=== PATIENT | female | born 1945 | race Caucasian/White ===

== ENCOUNTER 2016-10-14 15:51 | Inpatient (IN) | payer OTHER ==
[~2016-10-14] VITALS: Ht 154.9 cm; Wt 101.8 kg
[~2016-10-14 15:51] MED LIST: ASPIR 8181 M1 PO; ASPIRIN E.C.81 M1 PO; BENICAR HCT 201 EACH PO; CALCIUM MAGNES1 EAC1 PO; CRANBERRY200 MG PO; DIFLUCAN150 MG PO; FLEXERIL10 MG PO; METFORMIN HCL500 MG PO; NITROFURANTOIN50 MG PO; PERCOCET 5/31 TABLET PO; PERCOCET 7.51 TABLET PO; PYRIDIUM100 MG PO; Tums PO; VITAMIN D400 UNIT PO
[2016-10-14 16:59] VITALS: BP 138/69
[2016-10-14 19:38] VITALS: BP 122/63
[2016-10-15 00:25] LABS: ADD MIUA? YES; BILIRUBIN NEGATIVE; BLOOD MODERATE; COLOR YELLOW ((YELLOW)); GLUCOSE (STRIP) NEGATIVE; KETONES 5; LEUKOCYTES LARGE; NITRITE NEGATIVE; PROTEIN (STRIP) 100; UROBILINOGEN 0.2 MG/DL (0.2-1.0)
[2016-10-15 00:41] LABS: BACTERIA RARE /HPF; BUDDING YEAST 1+; EPITHELIAL CELLS RARE /HPF; HYALINE CASTS 0-5 /LPF; MUCUS TRACE /LPF; UCUL ADDED? YES; WHITE BLOOD CELLS TNTC /HPF (0-5)
[2016-10-15 00:45] VITALS: BP 142/69
[2016-10-15 03:35] VITALS: BP 124/59
[2016-10-15 07:28] LABS: POINT-OF-CARE METER ID UU14174225
[2016-10-15 07:37] LABS: HEMATOCRIT 29.3 % (36.0-46.0); MCH 26.1 PG (29.0-34.0); MCHC 31.4 G/DL (30.0-36.0); MEAN PLAT.VOLUME 11.1 uM^3 (9.5-12.4); PLATELET COUNT 272 K/uL (156-360); RBC DIS.WIDTH-CV 16.9 % (11.8-14.6); RED BLOOD COUNT 3.53 M/uL (3.80-5.20)
[2016-10-15 07:41] VITALS: BP 152/65
[2016-10-15 10:17] LABS: ANION GAP 11 MEQ/L (2-14); CHLORIDE 102 MEQ/L (99-109); GFR ESTIMATE (CALCULATED) > 59 mL/min/; GLUCOSE 123 mg/dL (70-99); POTASSIUM 3.7 MEQ/L (3.7-5.4); SAMPLE HEMOLYSIS CHECK 0; SAMPLE ICTERIC CHECK 0; SAMPLE LIPEMIA CHECK 0; SODIUM 137 MEQ/L (136-147); UREA NITROGEN (BUN) 31 mg/dL (9-23)
[2016-10-15 11:27] LABS: POINT-OF-CARE METER ID UU14174225
[2016-10-15 11:41] VITALS: BP 130/54
[2016-10-15 15:17] VITALS: BP 141/93
[2016-10-15 20:00] VITALS: BP 143/74
[2016-10-16] VITALS (7 sets, daily range): BP systolic 107–160; BP diastolic 61–90
[2016-10-16 11:04] LABS: EOSINOPHIL (%) 0.3 % (0-5); EOSINOPHIL COUNT 0.1 K/uL (0-0.3); HEMATOCRIT 26.4 % (36.0-46.0); IMMATURE GRANULOCYTE COUNT 0.2 K/uL; INSTRUMENT ABS NEUTROPHIL CT 18.9 K/uL; LYMPHOCYTE COUNT 0.9 K/uL (1.0-2.8); MCH 26.1 PG (29.0-34.0); MCHC 31.4 G/DL (30.0-36.0); MEAN PLAT.VOLUME 10.6 uM^3 (9.5-12.4); MONOCYTE (%) 6.7 % (3-12); MONOCYTE COUNT 1.4 K/uL (0-0.8); NEUTROPHIL (%) 87.6 % (45-76); NEUTROPHIL COUNT 18.9 K/uL (1.8-6.4); PLATELET COUNT 270 K/uL (156-360); RBC DIS.WIDTH-CV 16.9 % (11.8-14.6); RBC DIS.WIDTH-SD 50.8 % (39-53); RED BLOOD COUNT 3.18 M/uL (3.80-5.20); WHITE BLOOD COUNT 21.6 K/uL (4.1-10.2)
[2016-10-16 21:30] LABS: POINT-OF-CARE METER ID UU14174225
[2016-10-17 04:00] VITALS: BP 137/62
[2016-10-17 07:24] LABS: HEMATOCRIT 24.9 % (36.0-46.0); MCHC 31.7 G/DL (30.0-36.0); MCV 81.9 FL (83-99); MEAN PLAT.VOLUME 10.8 uM^3 (9.5-12.4); PLATELET COUNT 308 K/uL (156-360); RBC DIS.WIDTH-CV 16.8 % (11.8-14.6); RBC DIS.WIDTH-SD 50.1 % (39-53); RED BLOOD COUNT 3.04 M/uL (3.80-5.20); WHITE BLOOD COUNT 22.6 K/uL (4.1-10.2)
[2016-10-17 08:01] VITALS: BP 128/66
[2016-10-17 08:29] LABS: ANION GAP 12 MEQ/L (2-14); CHLORIDE 104 MEQ/L (99-109); GFR ESTIMATE (CALCULATED) 58 mL/min/; GLUCOSE 138 mg/dL (70-99); IRON 10 MCG/DL (35-150); POTASSIUM 3.1 MEQ/L (3.7-5.4); SAMPLE HEMOLYSIS CHECK 0; SAMPLE ICTERIC CHECK 0; SAMPLE LIPEMIA CHECK 0; SODIUM 137 MEQ/L (136-147); UREA NITROGEN (BUN) 30 mg/dL (9-23)
[2016-10-17 08:33] LABS: POINT-OF-CARE METER ID UU14174225
[2016-10-17 09:10] LABS: FERRITIN 208 NG/ML (10-291)
[2016-10-17 11:35] LABS: POINT-OF-CARE METER ID UU14174225
[2016-10-17 12:00] VITALS: BP 113/65
[2016-10-17 13:46] LABS: HEMATOCRIT 25.5 % (36.0-46.0); MCV 83.1 FL (83-99)
[2016-10-17 15:48] VITALS: BP 136/65
[2016-10-17 16:57] LABS: POINT-OF-CARE METER ID UU14174225
[2016-10-17 19:32] VITALS: BP 135/62
[2016-10-18] VITALS (10 sets, daily range): BP systolic 123–158; BP diastolic 61–71
[2016-10-18 06:42] LABS: HEMATOCRIT 23.5 % (36.0-46.0); MCH 25.6 PG (29.0-34.0); MCHC 31.5 G/DL (30.0-36.0); MCV 81.3 FL (83-99); MEAN PLAT.VOLUME 10.5 uM^3 (9.5-12.4); PLATELET COUNT 342 K/uL (156-360); RBC DIS.WIDTH-CV 16.9 % (11.8-14.6); RBC DIS.WIDTH-SD 50.8 % (39-53); RED BLOOD COUNT 2.89 M/uL (3.80-5.20); WHITE BLOOD COUNT 20.7 K/uL (4.1-10.2)
[2016-10-18 07:02] LABS: ANION GAP 10 MEQ/L (2-14); CHLORIDE 104 MEQ/L (99-109); GFR ESTIMATE (CALCULATED) 43 mL/min/; GLUCOSE 135 mg/dL (70-99); POTASSIUM 3.6 MEQ/L (3.7-5.4); SAMPLE HEMOLYSIS CHECK 0; SAMPLE ICTERIC CHECK 0; SAMPLE LIPEMIA CHECK 0; SODIUM 136 MEQ/L (136-147); UREA NITROGEN (BUN) 39 mg/dL (9-23)
[2016-10-18 20:03] LABS: HEMATOCRIT 28.1 % (36.0-46.0); MCV 82.2 FL (83-99)
[2016-10-19 04:07] VITALS: BP 138/71
[2016-10-19 07:31] VITALS: BP 129/71
[2016-10-19 11:05] VITALS: BP 117/54
[2016-10-19 11:07] LABS: POINT-OF-CARE METER ID UU14188625
[2016-10-19] MEDS ORDERED: AMOX TR-K CLV1 EAC4 PO (13:47)
[2016-10-19] MEDS ORDERED: LEVEMIR100 UNIT/2 SC (13:47)
[2016-10-19] MEDS ORDERED: PERCOCET 7.51 TABLET PO (13:47)
[2016-10-19] MEDS ORDERED: FERROUS SULFAT325 MG PO (13:47)
[2016-10-19] MEDS ORDERED: FENTANYL1 EAC4 TD (13:47)
[2016-10-19] MEDS ORDERED: DOXYCYCLINE HY100 M3 PO (13:47)
[2016-10-19 15:06] VITALS: BP 143/64
== END 2016-10-19 17:23 | disposition home health service (06) | DRG 603 ==
LOC: 5SOUTH 15:51
PROVIDERS: Hospitalist; Internal Medicine; Nurse Practitioner Adult Health; Physician Assistant Medical
PROC: 30233N1 Transfusion of Nonautologous Red Blood Cells into Peripheral Vein, Percutaneous Approach (ICD-10-PCS; principal; 2016-10-18)
DX: L03.311 Cellulitis of abdominal wall (principal); L03.116 Cellulitis of left lower limb; L03.115 Cellulitis of right lower limb; L03.317 Cellulitis of buttock; E87.1 Hypo-osmolality and hyponatremia; R78.81 Bacteremia; N39.0 Urinary tract infection, site not specified; B95.62 Methicillin resistant Staphylococcus aureus infection as the cause of diseases classified elsewhere; M86.352 Chronic multifocal osteomyelitis, left femur; Z68.41 Body mass index [BMI] 40.0-44.9, adult; B95.4 Other streptococcus as the cause of diseases classified elsewhere; L03.315 Cellulitis of perineum; E87.6 Hypokalemia; D64.9 Anemia, unspecified; E11.9 Type 2 diabetes mellitus without complications; I10 Essential (primary) hypertension; J45.909 Unspecified asthma, uncomplicated; D07.1 Carcinoma in situ of vulva; E66.01 Morbid (severe) obesity due to excess calories; Z85.3 Personal history of malignant neoplasm of breast; Z88.2 Allergy status to sulfonamides
CPT/HCPCS: 74176; 80048; 81003; 82272; 82728; 82746; 82948; 83540; 84466; 85014; 85018; 85025; 85025 91; 85027; 86140; 86850; 86900; 86901; 86920; 87040; 87077; 87086; 87147; 87186; 97530 GO; 99202; J0295; J0692; J1650; J1815; J2270; J3370; J7030; J7050; P9016

== ENCOUNTER 2017-02-04 05:28 | Day surgery (SDC) | payer OTHER ==
[~2017-02-04] VITALS: Ht 152.4 cm; Wt 98.4 kg
[~2017-02-04 05:28] MED LIST changes: +AMOX TR-K CLV1 EAC4 PO; +ASPIRIN81 M2 PO; +AVALIDE 300/1 TABLET PO; +CYANOCOBALAM1000 MCG PO; +DOXYCYCLINE HY100 M3 PO; +FENTANYL1 EAC4 TD; +FERROUS SULFAT325 MG PO; +FLORASTOR250 MG PO; +LEVEMIR100 UNIT/2 SC; +OXYCODONE-ACET1 EACH PO; +PEN-VEE K,VEET500 MG PO; +VOLTAREN75 MG PO
[2017-02-04 05:57] VITALS: BP 150/67
[2017-02-04 06:27] LABS: POINT-OF-CARE METER ID UU13113694
[2017-02-04 07:10] LABS: METH RESISTANT S AUREUS PCR POSITIVE (NEGATIVE)
[2017-02-04 07:12] LABS: PROBE CHECK PASS
[2017-02-04 09:32] VITALS: BP 146/62
[2017-02-04 10:32] VITALS: BP 137/65
[2017-02-04 11:23] VITALS: BP 124/96
== END 2017-02-04 11:32 | disposition home or self-care (01) ==
LOC: SDC 05:28
PROVIDERS: Obstetrics & Gynecology Gynecologic Oncology
PROC: 0UTM0ZZ Resection of Vulva, Open Approach (ICD-10-PCS; principal; 2017-02-04)
DX: C51.9 Malignant neoplasm of vulva, unspecified (principal); I10 Essential (primary) hypertension; E11.9 Type 2 diabetes mellitus without complications; Z88.2 Allergy status to sulfonamides; K21.9 Gastro-esophageal reflux disease without esophagitis; L89.152 Pressure ulcer of sacral region, stage 2; J45.20 Mild intermittent asthma, uncomplicated; E66.9 Obesity, unspecified; Z68.41 Body mass index [BMI] 40.0-44.9, adult; Z79.84 Long term (current) use of oral hypoglycemic drugs; Z79.82 Long term (current) use of aspirin; Z92.21 Personal history of antineoplastic chemotherapy
CPT/HCPCS: 82948; 85025; 86900; 86901; 87641; 88305; J0131; J0690; J1170; J1885; J2250; J3010

== ENCOUNTER → 2017-04-14 | Outpatient (CLI) | payer OTHER | END | disposition home or self-care (01) | LOC: RAD 09:05 | DX: N32.89 Other specified disorders of bladder (principal); S32.402A Unspecified fracture of left acetabulum, initial encounter for closed fracture; M87.88 Other osteonecrosis, other site | CPT/HCPCS: 72193 ==